=== PATIENT | male | born 2000 | race Caucasian/White ===

== ENCOUNTER 2021-09-06 13:33 | Emergency (ER) | payer OTHER ==
[~2021-09-06] VITALS: Ht 167.6 cm; Wt 68.0 kg
== END 2021-09-06 16:15 | disposition home or self-care (01) ==
LOC: ER 13:33
DX: K62.9 Disease of anus and rectum, unspecified (principal); K60.2 Anal fissure, unspecified

== ENCOUNTER → 2022-11-20 | Emergency (ER) | payer OTHER ==
[~2022-11-20] VITALS: Ht 157.5 cm; Wt 83.9 kg
== END | disposition home or self-care (01) ==
LOC: ER 13:09
DX: A09 Infectious gastroenteritis and colitis, unspecified (principal)

== ENCOUNTER 2024-08-23 08:16 | Emergency (ER) | payer OTHER ==
[~2024-08-23] VITALS: Ht 167.6 cm; Wt 79.4 kg
[2024-08-23] MEDS ORDERED: RINGERS SOLUTION,LACTATED 1,000 ML IV STA (09:15)
[2024-08-23] MEDS ORDERED: FAMOtidine 10 MG/ML (4ML VIAL) IV STA (09:16)
[2024-08-23] MEDS ORDERED: ONDANSETRON HCL 2 MG/ML VIAL IV ONE (09:30)
[2024-08-23] MEDS ORDERED: HYOSCYAMINE SULFATE 0.125 MG TAB.SUBL SL ONE (09:30)
[2024-08-23 10:35] LABS: HEMATOCRIT 46.2 % (39.0-48.0); HEMOGLOBIN 15.9 g/dL (13-16.00); MEAN CELL VOLUME 79.8 fL (80.0-100.00); MEAN CORPUSCULAR HEMOGLOBIN 27.6 pg (27.00-32.0); MEAN CORPUSCULAR HGB CONC 34.5 g/dl (32.0-36.0); PLATELET COUNT 290 K/uL (150-450); RED BLOOD COUNT 5.78 M/uL (4.00-6.00); RED CELL DISTRIBUTION WIDTH 13.8 % (11.5-14.5)
[2024-08-23 10:35] LABS: PH,URINE 6.5 (5.0-8.0); URINE APPEARANCE Clear; URINE BILIRRUBIN Negative (NEGATIVE); URINE BLOOD Negative; URINE COLOR Yellow; URINE GLUCOSE Negative (NEGATIVE); URINE KETONE Negative (NEGATIVE); URINE LEUKOCYTE Negative; URINE NITRATE Negative; URINE PROTEIN Negative (NEGATIVE)
[2024-08-23 10:39] LABS: URINE BACTERIA 7.5 uL (0.0-1933); URINE EPITHELIAL CELLS 2.1 uL (0.0-38.8); URINE RBC 6.7 uL (0.0-20.8); URINE WBC 2.9 uL (0.0-23.2)
[2024-08-23 10:52] LABS: URINE CAST 0.15 uL (0.0-1.40)
[2024-08-23 11:39] LABS: CALCIUM 9.6 mg/dL (8.5-10.1); CREATININE SERUM 0.78 mg/dL (0.70-1.30); GFR 121.27; POTASSIUM 4.49 mEq/L (3.5-5.1)
== END 2024-08-23 13:30 | disposition home or self-care (01) ==
LOC: ER 08:18
PROVIDERS: General Practice
DX: R19.7 Diarrhea, unspecified (principal); Z88.6 Allergy status to analgesic agent; E86.0 Dehydration